=== PATIENT | female | born 1980 | race Caucasian/White ===

== ENCOUNTER 2017-05-23 22:00 | Inpatient (IN) | payer OTHER ==
[~2017-05-23] VITALS: Ht 167.6 cm; Wt 59.0 kg
--- NOTE | ~2017-05-23 | PN ---
Unit #: [id number] #: [id number] Patient: DANIEL CASTRO [id number] [facility] [address] [place] [address] [id number] MR#: [id number] NAME: DANIEL CASTRO ROOM: P171 Age: 36 Sex: F Admission Date: 05/24/2017 : 1980 Attending Physician: Eric Heredia M.D. Admitting Physician: Eric Heredia M.D. Primary Care Physician: Generic Doctor Not In System [facility] PROGRESS NOTES DATE 05/25/2017 DISCUSSION The patient is abed today. She is continuing to complain of anxiety and headache. I will add p.r.n. Vistaril to the patient's current detoxification protocol. Dictated by... Eric Heredia M.D. CB/augusto TD: 05/25/2017 23:14 JOB #: [id number] [facility] PROGRESS NOTES Page 1 of 1 X Eric Heredia MD PROGRESS NOTE
--- NOTE | ~2017-05-23 | HP ---
Unit #: [id number] #: [id number] Patient: DANIEL CASTRO [id number] [place] [address] [id number] MR#: [id number] NAME: DANIEL CASTRO ROOM: P171 Age: 36 Sex: F Admission Date: 05/24/2017 : 1980 Attending Physician: Eric Heredia M.D. Admitting Physician: Eric Heredia M.D. Primary Care Physician: Generic Doctor Not In System HISTORY AND PHYSICAL HISTORY OF PRESENT ILLNESS Patient is a 36-year-old female admitted to [facility] on 05/24/2017 for drug abuse including heroin and crack cocaine. PAST MEDICAL HISTORY 1. Drug abuse including heroin and crack cocaine. 2. Asthma. 3. Smoker. PAST SURGICAL HISTORY 1. Bilateral tubal ligation. 2. Oral surgery. SOCIAL HISTORY She is unemployed. She lives with her mom. She smokes one pack of cigarettes daily. Smokes two joints of marijuana per day and uses crack, heroin and benzodiazepines on a daily basis. FAMILY MEDICAL HISTORY Noncontributory. ALLERGIES No known drug allergies. CURRENT MEDICATIONS Ventolin REVIEW OF SYSTEMS CONSTITUTIONAL: No fever or chills. HEENT: Denies any sore throat, ear pain or runny nose. CARDIOVASCULAR: Denies chest pain, irregular heart rhythm or palpitations. CHEST: Denies shortness of breath or cough. No hemoptysis. GASTROINTESTINAL: Denies nausea, vomiting, diarrhea or chronic constipation. ENDOCRINE: Denies history of increased thirst or urination. No recent significant weight loss or gain. GENITOURINARY: Denies dysuria, frequency, or hematuria. SKIN: Denies any rashes. HEMATOLOGIC: Denies history of increased bleeding or bruising. MUSCULOSKELETAL: Denies any hot, swollen joints. No generalized muscle pain. NEUROLOGIC: Denies problems with vision or speech. No frequent, severe headaches. No numbness, tingling or weakness in any extremities. Denies Unit #: [id number] #: [id number] Patient: DANIEL CASTRO loss of bladder or bowel control. PHYSICAL EXAM GENERAL: She is awake, alert and oriented in no acute distress. VITAL SIGNS: Temperature 98.9, heart rate 78, respiration 18, blood pressure 136/74. HEIGHT: 5'6". WEIGHT: 130 pounds. SKIN: She has track banda at bilateral antecubital spaces. HEENT: Normocephalic. TMs not viewed. Oral and nasal passages clear. Conjunctivae clear. PERRLA. EOMs intact. NECK: Supple without lymphadenopathy or thyromegaly. HEART: Regular rate and rhythm without murmur. LUNGS: Clear. ABDOMEN: Soft, nontender. : Not done. EXTREMITIES: No evidence of cyanosis, clubbing or edema. Moves all without focal deficit. NEUROLOGICAL: Grossly within normal limits. Cranial Nerves: II: Visual delgado are intact. III, IV AND : Extraocular movements are intact. Pupils are equal, round and reactive to light. V: Facial sensation is grossly normal. VII: Facial movements and expression are normal. VIII: Auditory acuity grossly intact. IX, X: Uvula is midline. Phonation is normal. XI: Patient shrugs shoulders and turns head normally. XII: Tongue protrudes in the midline. Sensory and Motor Function: Sensory and motor sensation is grossly normal. Motor: moves all extremities well. IMPRESSION 1. Psychiatric admission. 2. Drug abuse. 3. Asthma. 4. Smoker. RECOMMENDATIONS Psychiatric per psychiatrist. MEDICAL: No contraindication to participate in facility activities. MEDICAL PROGNOSIS Good. MEDICAL CONDITION Stable. Dictated by... Gilberto Rene/augusto TD: 05/25/2017 00:45 JOB #: [id number] Unit #: [id number] #: [id number] Patient: DANIEL CASTRO HISTORY AND PHYSICAL Page 1 of 1 X NANCY HINSON APRN HISTORY AND PHYSICAL
--- NOTE | ~2017-05-23 | DS ---
Unit #: [id number] #: [id number] Patient: DANIEL CASTRO [id number] [place] [address] [id number] I MR#: [id number] NAME: DANIEL CASTRO ROOM: P171 Age: 36 Sex: F Admission Date: 05/24/2017 : 1980 Discharge Date: 05/27/2017 Attending Physician: Eric Heredia M.D. Primary Care Physician: Generic Doctor Not In System DISCHARGE SUMMARY REASON FOR ADMISSION The patient is a 36-year-old white female admitted to the [facility] Unit for opioid and cocaine detox. HOSPITAL COURSE The patient was admitted to the [address] [place] [address] and placed on routine detoxification protocol for opioids. Vistaril 50 mg q. 6 hours p.r.n. anxiety was added. The patient showed rapid improvement on 05/26. This physician learned that the patient had been accepted for treatment at [facility] in [place] on the following day and discharge was ordered to take place on that day. FINAL DIAGNOSES 1. Cocaine use disorder. 2. Opioid use disorder. DISPOSITION ON DISCHARGE No psychotropic or other medications were ordered at the time of discharge. FOLLOWUP Followup will take place through the auspices of "[facility]" in [place], [place]. PROGNOSIS Considered fair. Dictated by... Eric Heredia M.D. CB/mayuri TD: 05/29/2017 09:30 JOB #: [id number] Unit #: [id number] #: [id number] Patient: DANIEL CASTRO DISCHARGE SUMMARY Page 1 of 1 X Eric Heredia MD X DISCHARGE SUMMARY
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
[2017-05-25 10:01] LABS: BASOPHIL# 0.1 X10e3 (0-0.3); BASOPHIL% 0.7 % (0-2.5); EOSINOPHIL# 0.5 X10e3 (0-0.7); EOSINOPHIL% 3.9 % (0.0-7.0); HEMATOCRIT 40.7 % (35.0-45.0); HEMOGLOBIN 13.2 gm/dL (12.0-16.0); LYMPHOCYTE# 2.7 X10e3 (1.0-3.5); LYMPHOCYTE% 23.5 % (17.0-45.0); MEAN CELL VOLUME 91.5 FL (83-96); MEAN CORPUSCULAR HEMOGLOBIN 29.7 PG (28-34); MEAN CORPUSCULAR HGB CONC 32.5 g/dL (30-36); MEAN PLATELET VOLUME 9.7 FL (6.5-11.5); MONOCYTE# 1.6 X10e3 (0-1.0); MONOCYTE% 14.1 % (3.0-12.0); NEUTROPHIL# 6.8 X10e3 (1.5-7.1); NEUTROPHIL% 57.8 % (40-75); PLATELET COUNT 337 X10e3 (140-420); RED BLOOD COUNT 4.44 X10e (3.90-5.30); RED CELL DISTRIBUTION WIDTH 13.8 % (11.0-15.5); WHITE BLOOD COUNT 11.7 X10e3 (4.0-10.5)
[2017-05-25 10:03] LABS: DIFF IND NO
[2017-05-25 10:44] LABS: ALBUMIN SERUM 3.1 g/dL (3.5-5.0); BILIRUBIN,TOTAL 0.4 mg/dL (0.2-2.0); BUN/CREATININE RATIO 14.44; CREATININE SERUM 0.9 mg/dL (0.6-1.4); GLOM FILT RATE Estimated 83.5 mL/min (>60); PROTEIN TOTAL SERUM 6.8 g/dL (6.0-8.3)
[2017-05-25 12:41] LABS: URINE APPEARANCE TURBID; URINE BILIRUBIN NEG (NEG); URINE BLOOD 1+ (NEG); URINE COLOR YELLOW; URINE GLUCOSE NEG (NEG); URINE KETONE NEG (NEG); URINE LEUKOCYTE ESTERASE 3+ (NEG); URINE NITRATE POS (NEG); URINE PROTEIN TRACE (NEG); URINE SPECIFIC GRAVITY 1.018 (1.003-1.035); URINE UROBILINOGEN 0.2 MG/DL (NEG)
[2017-05-25 12:45] LABS: CULTURE INDICATED? YES; URINE BACTERIA AUWI 4+ (NEGATIVE); URINE SQUAMOUS EPITHELIAL CELL FEW /[HPF]; UWBCS1 AUWI INNUM (0-5)
== END 2017-05-27 10:00 | DRG 897 ==
LOC: P1E 05-24 00:45
PROVIDERS: Specialist
PROC: HZ2ZZZZ Detoxification Services for Substance Abuse Treatment (ICD-10-PCS; principal; 2017-05-24)
DX: F11.20 Opioid dependence, uncomplicated (principal); F14.20 Cocaine dependence, uncomplicated; J45.909 Unspecified asthma, uncomplicated
CPT/HCPCS: 80053; 81003; 84703; 85025; 87086; 87088; 87186